=== PATIENT | female | born 1985 | race Two or more races ===

== ENCOUNTER 2016-06-27 17:05 | Emergency (ER) | payer OTHER ==
[~2016-06-27] VITALS: Ht 157.5 cm; Wt 58.1 kg
[2016-06-27 17:44] VITALS: BP 136/79
== END 2016-06-27 20:45 | disposition left against medical advice (07) ==
LOC: ER 17:17
DX: R10.9 Unspecified abdominal pain (principal); R11.2 Nausea with vomiting, unspecified; Z53.21 Procedure and treatment not carried out due to patient leaving prior to being seen by health care provider

== ENCOUNTER → 2019-07-16 | Emergency (ER) | payer MEDICAID, OTHER ==
[~2019-07-16] VITALS: Ht 157.5 cm; Wt 63.5 kg
[~2019-07-16] MED LIST: FAMOTIDINE (10MG/ML) 2ML VL IV ONE; SODIUM CHLORIDE 0.9% 1,000 ML IV ONE; diphenhdrAMINE HCL 50 MG/1 ML VL IV ONE; methylPREDNISolone SOD SUCC 125 MG/2 ML VL IV ONE
[2019-07-17] VITALS: BP 112/79
== END | disposition home or self-care (01) ==
LOC: EDUNIT# 21:08 → EDBD 21:23 → ER 21:27
DX: T78.40XA Allergy, unspecified, initial encounter (principal); R51 Headache; R07.9 Chest pain, unspecified; R10.9 Unspecified abdominal pain; Z90.49 Acquired absence of other specified parts of digestive tract; Z90.710 Acquired absence of both cervix and uterus; Z88.0 Allergy status to penicillin; Z88.8 Allergy status to other drugs, medicaments and biological substances
CPT/HCPCS: 96374; 96375; 99284; J1200; J2930; J3490; J7030

== ENCOUNTER 2019-11-12 01:32 | Emergency (ER) | payer MEDICAID ==
[~2019-11-12] VITALS: Ht 157.5 cm; Wt 60.8 kg
[2019-11-12 02:28] LABS: Basophils # (auto) 0.1 10 ^3/uL (0-0.2); Eosinophils # (auto) 0.1 10 ^3/uL (0-0.8); Eosinophils % (auto) 2.4 % (0.0-7.0); Hematocrit 40.8 % (36.0-46.0); Hemoglobin 13.8 g/dL (12.2-16.2); Lymphocytes # (auto) 3.1 10 ^3/uL (0.4-5.4); Lymphocytes % (auto) 54.5 % (10.0-50.0); Mean Corpuscular Hgb Conc. 33.9 g/dL (32.0-36.0); Mean Corpuscular Volume 91.5 fL (80.0-100.0); Monocytes # (auto) 0.3 10 ^3/uL (0-1.3); Monocytes % (auto) 5.7 % (0.0-12.0); Neutrophils # (auto) 2.1 10 ^3/uL (1.6-8.6); Neutrophils % (auto) 36.4 % (37.0-80.0); Nucleated Red Blood Cells % 0.1 %; Platelet Count (auto) 247 10^3/uL (140-450); Red Blood Cells 4.46 10^6/uL (4.0-5.20); Red Cell Distribution Width 12.2 % (11.8-14.3); White Blood Cell 5.8 10^3/uL (4.4-10.8)
[2019-11-12 02:37] LABS: Calcium 8.9 mg/dL (8.5-10.1); Magnesium 2.5 mg/dL (1.6-2.6); Potassium 4.1 mmol/L (3.5-5.1)
[2019-11-12 02:43] LABS: BUN/Creatinine Ratio 21.9; Bilirubin, Total 0.1 mg/dL (0.2-1.0); Total Protein 7.7 g/dL (6.4-8.2)
[2019-11-12] MEDS ORDERED: ONDANSETRON HCL 4 MG/2 ML VIAL IV ONE (02:45)
[2019-11-12] MEDS ORDERED: MORPHINE SULFATE 4 MG/ML SYR/VIAL IV ONE (02:45)
[2019-11-12 02:52] LABS: Urine Bacteria FEW /hpf (None Seen); Urine Blood Negative /uL (Negative); Urine Specific Gravity 1.016 (1.001-1.035); Urine WBC 3 /hpf (0 - 5)
[2019-11-12] MEDS ORDERED: diphenhdrAMINE HCL 50 MG/1 ML VL IV ONE ×2 (03:00→05:00)
[2019-11-12 04:26] VITALS: BP 107/68
[2019-11-12] MEDS ORDERED: HYDROmorphone HCL 2 MG/ML VL IV ONE (04:45)
== END 2019-11-12 05:20 | disposition home or self-care (01) ==
LOC: ER 01:33
DX: K59.00 Constipation, unspecified (principal); N83.209 Unspecified ovarian cyst, unspecified side; Z88.0 Allergy status to penicillin; Z88.8 Allergy status to other drugs, medicaments and biological substances
CPT/HCPCS: 36415; 74176; 80053; 81001; 82150; 83690; 83735; 85025; 96374; 96375; 96376; 99284; J1170; J1200; J2270; J2405

== ENCOUNTER 2020-10-02 09:39 | Emergency (ER) | payer MEDICAID ==
[~2020-10-02] VITALS: Ht 157.5 cm; Wt 61.2 kg
[2020-10-02 10:06] LABS: Basophils # (auto) 0 10 ^3/uL (0-0.2); Basophils % (auto) 0.8 % (0.0-2.0); Eosinophils # (auto) 0.1 10 ^3/uL (0-0.8); Eosinophils % (auto) 2.3 % (0.0-7.0); Hematocrit 45.5 % (36.0-46.0); Hemoglobin 15.4 g/dL (12.2-16.2); Lymphocytes # (auto) 2.7 10 ^3/uL (0.4-5.4); Lymphocytes % (auto) 42.9 % (10.0-50.0); Mean Corpuscular Hemoglobin 32.1 pg (28.0-32.0); Mean Corpuscular Hgb Conc. 33.9 g/dL (32.0-36.0); Mean Corpuscular Volume 94.8 fL (80.0-100.0); Monocytes # (auto) 0.4 10 ^3/uL (0-1.3); Monocytes % (auto) 6.3 % (0.0-12.0); Neutrophils % (auto) 47.7 % (37.0-80.0); Nucleated Red Blood Cells % 0.1 %; Red Blood Cells 4.81 10^6/uL (4.0-5.20); Red Cell Distribution Width 12.7 % (11.8-14.3); White Blood Cell 6.3 10^3/uL (4.4-10.8)
[2020-10-02 10:26] LABS: Anion Gap 9 (5-15); Blood Urea Nitrogen 13 mg/dL (7-18); Calcium 8.9 mg/dL (8.5-10.1); Carbon Dioxide 21 mmol/L (21-32); Chloride 108 mmol/L (98-107); Glucose 103 mg/dL (74-106); Potassium 3.9 mmol/L (3.5-5.1); Sodium 138 mmol/L (136-145)
[2020-10-02 10:31] LABS: Alanine Aminotransferase 32 U/L (13-56); Alkaline Phosphatase 61 U/L (45-117); Aspartate Aminotransferase 26 U/L (15-37); BUN/Creatinine Ratio 19.7; Bilirubin, Total 0.5 mg/dL (0.2-1.0); GFR African American 130 mL/min; GFR Non-African American 108 mL/min; Total Protein 7.5 g/dL (6.4-8.2)
[2020-10-02] MEDS ORDERED: ONDANSETRON HCL 4 MG/2 ML VIAL IV ONE (10:45)
[2020-10-02] MEDS ORDERED: KETOROLAC TROMETH 60MG/2ML VIAL IM ONE (10:45)
[2020-10-02] MEDS ORDERED: diphenhdrAMINE HCL 50 MG/1 ML VL ONE (10:59)
[2020-10-02] MEDS ORDERED: KETOROLAC TROMETH 30 MG/ML 1ML VIAL IV ONE (11:00)
[2020-10-02] MEDS ORDERED: diphenhdrAMINE HCL 50 MG/1 ML VL IV ONE (11:00)
[2020-10-02] MEDS ORDERED: ASPirin 81 mg TAB PO ONE (11:00)
[2020-10-02] MEDS ORDERED: SODIUM CHLORIDE 0.9% 1,000 ML IV ONE (11:00)
[2020-10-02 11:31] LABS: Urine Bacteria NONE SEEN /hpf (None Seen); Urine Blood Negative /uL (Negative); Urine Specific Gravity 1.021 (1.001-1.035); Urine WBC <1 /hpf (0 - 5)
[2020-10-02 11:42] LABS: INR 0.97 (0.9-1.15)
[2020-10-02] MEDS ORDERED: LORazepam 2MG/ML-1ML VIAL IV ONE (11:45)
[2020-10-02 14:38] VITALS: BP 120/85
== END 2020-10-02 15:07 | disposition home or self-care (01) ==
LOC: ER 09:39
DX: R07.89 Other chest pain (principal); F41.8 Other specified anxiety disorders; R06.4 Hyperventilation; F17.210 Nicotine dependence, cigarettes, uncomplicated; Z90.49 Acquired absence of other specified parts of digestive tract; Z90.710 Acquired absence of both cervix and uterus; Z88.0 Allergy status to penicillin; Z88.8 Allergy status to other drugs, medicaments and biological substances
CPT/HCPCS: 36415; 71046; 80053; 81001; 83735; 84443; 84484; 85025; 85379; 85610; 93005; 96361; 96372; 96374; 96375; 99285; J1200; J1885; J2060; J2405

== ENCOUNTER 2021-02-05 01:40 | Emergency (ER) | payer MEDICAID ==
[~2021-02-05] VITALS: Ht 157.5 cm; Wt 62.6 kg
[2021-02-05 02:23] LABS: Urine Bacteria NONE SEEN /hpf (None Seen); Urine Blood Negative /uL (Negative); Urine Mucus FEW (None Seen); Urine Specific Gravity 1.018 (1.001-1.035); Urine WBC 1 /hpf (0 - 5)
[2021-02-05 02:24] LABS: Alanine Aminotransferase 31 U/L (13-56); Amylase 70 U/L (25-115); Anion Gap 12 (5-15); Aspartate Aminotransferase 27 U/L (15-37); BUN/Creatinine Ratio 12.9; Blood Urea Nitrogen 9 mg/dL (7-18); Calcium 8.7 mg/dL (8.5-10.1); Carbon Dioxide 21 mmol/L (21-32); Chloride 109 mmol/L (98-107); GFR African American 122 mL/min; GFR Non-African American 101 mL/min; Glucose 110 mg/dL (74-106); Lipase 171 U/L (73-393); Sodium 142 mmol/L (136-145)
[2021-02-05 02:27] LABS: Alkaline Phosphatase 72 U/L (45-117); Bilirubin, Total 0.2 mg/dL (0.2-1.0)
[2021-02-05] MEDS ORDERED: ONDANSETRON ODT 4 MG TAB PO ONE (02:30)
[2021-02-05] MEDS ORDERED: MORPHINE SULFATE 10 MG/ML INJ 1ML SDV IM ONE (02:30)
[2021-02-05 02:45] LABS: Basophils # (auto) 0.1 10 ^3/uL (0-0.2); Basophils % (auto) 1.1 % (0.0-2.0); Eosinophils # (auto) 0.1 10 ^3/uL (0-0.8); Eosinophils % (auto) 0.8 % (0.0-7.0); Hematocrit 43.3 % (36.0-46.0); Hemoglobin 15.1 g/dL (12.2-16.2); Lymphocytes # (auto) 3.7 10 ^3/uL (0.4-5.4); Mean Corpuscular Hemoglobin 32.3 pg (28.0-32.0); Mean Corpuscular Hgb Conc. 34.8 g/dL (32.0-36.0); Mean Corpuscular Volume 92.8 fL (80.0-100.0); Monocytes # (auto) 0.4 10 ^3/uL (0-1.3); Monocytes % (auto) 5.6 % (0.0-12.0); Neutrophils # (auto) 2.7 10 ^3/uL (1.6-8.6); Neutrophils % (auto) 38.5 % (37.0-80.0); Nucleated Red Blood Cells % 0.1 %; Red Blood Cells 4.66 10^6/uL (4.0-5.20); Red Cell Distribution Width 12.6 % (11.8-14.3); White Blood Cell 6.9 10^3/uL (4.4-10.8)
[2021-02-05] MEDS ORDERED: MORPHINE SULFATE 4 MG/ML SYR/VIAL ONE (02:57)
[2021-02-05 03:40] LABS: Amphetamine Screen, Urine NEGATIVE (NEGATIVE); Barbiturate Scree,Urine NEGATIVE (NEGATIVE); Benzodiazephine Screen, Urine NEGATIVE (NEGATIVE); Cannabinoid Screen, Urine NEGATIVE (NEGATIVE); Cocaine Screen, Urine NEGATIVE (NEGATIVE); Opiate Scree,Urine NEGATIVE (NEGATIVE); Phencyclidine Screen, Urine NEGATIVE (NEGATIVE)
[2021-02-05] MEDS ORDERED: diphenhdrAMINE HCL 25 MG CAP PO ONE (04:00)
[2021-02-05] MEDS ORDERED: OXYCODONE W/ ACETAMINOPHEN 5/325MG TABLET PO ONE (04:00)
[2021-02-05 04:41] VITALS: BP 117/76
== END 2021-02-05 04:56 | disposition home or self-care (01) ==
LOC: ER 01:40
DX: G89.29 Other chronic pain (principal); R10.30 Lower abdominal pain, unspecified; F10.129 Alcohol abuse with intoxication, unspecified; F17.210 Nicotine dependence, cigarettes, uncomplicated; Z90.49 Acquired absence of other specified parts of digestive tract; Z90.710 Acquired absence of both cervix and uterus; Z88.0 Allergy status to penicillin; Z88.8 Allergy status to other drugs, medicaments and biological substances; Y90.8 Blood alcohol level of 240 mg/100 ml or more
CPT/HCPCS: 36415; 74176; 80053; 80307; 80320; 81001; 82150; 83690; 85025; 96372; 99284; J2270; Q0162

== ENCOUNTER 2021-07-21 13:13 | Emergency (ER) | payer MEDICAID ==
[~2021-07-21] VITALS: Ht 157.5 cm; Wt 62.6 kg
[2021-07-21] MEDS ORDERED: ONDANSETRON HCL 4 MG/2 ML VIAL IV ONE ×2 (13:45→23:00)
[2021-07-21] MEDS ORDERED: HYDROmorphone HCL 2 MG/ML VL IV ONE (13:45)
[2021-07-21] MEDS ORDERED: SODIUM CHLORIDE 0.9% 1,000 ML IVB ONE (13:45)
[2021-07-21] MEDS ORDERED: PANTOPRAZOLE 40 MG/10 ML VIAL INJ IV ONE (13:45)
[2021-07-21 14:18] LABS: Urine Bacteria NONE SEEN /hpf (None Seen); Urine Blood Negative /uL (Negative); Urine Mucus FEW (None Seen); Urine Specific Gravity 1.023 (1.001-1.035); Urine WBC 1 /hpf (0 - 5)
[2021-07-21 15:31] LABS: Basophils # (auto) 0.1 10 ^3/uL (0-0.2); Basophils % (auto) 2.1 % (0.0-2.0); Eosinophils # (auto) 0 10 ^3/uL (0-0.8); Eosinophils % (auto) 0.1 % (0.0-7.0); Hematocrit 42.4 % (36.0-46.0); Hemoglobin 14.6 g/dL (12.2-16.2); Lymphocytes # (auto) 2.5 10 ^3/uL (0.4-5.4); Lymphocytes % (auto) 38.7 % (10.0-50.0); Mean Corpuscular Hemoglobin 31.3 pg (28.0-32.0); Mean Corpuscular Hgb Conc. 34.4 g/dL (32.0-36.0); Mean Corpuscular Volume 91.1 fL (80.0-100.0); Monocytes # (auto) 0.3 10 ^3/uL (0-1.3); Monocytes % (auto) 5.1 % (0.0-12.0); Neutrophils # (auto) 3.5 10 ^3/uL (1.6-8.6); Nucleated Red Blood Cells % 0.1 %; Red Blood Cells 4.65 10^6/uL (4.0-5.20); Red Cell Distribution Width 12.6 % (11.8-14.3); White Blood Cell 6.6 10^3/uL (4.4-10.8)
[2021-07-21 15:49] LABS: Potassium 3.8 mmol/L (3.5-5.1)
[2021-07-21 15:55] LABS: Albumin 3.7 g/dL (3.4-5.0); BUN/Creatinine Ratio 23.6; Bilirubin, Total 0.5 mg/dL (0.2-1.0); Calcium 8.5 mg/dL (8.5-10.1); Total Protein 7.1 g/dL (6.4-8.2)
[2021-07-21] MEDS ORDERED: HYDR-4902 PO (16:08)
[2021-07-21] MEDS ORDERED: ONDA-144 PO (16:08)
[2021-07-21] MEDS ORDERED: PANT40TA2 PO (16:08)
[2021-07-21] MEDS ORDERED: PROCHLORPERAZINE EDISYLATE 5 MG/ML 2ML VIAL IV ONE (16:45)
[2021-07-21] MEDS ORDERED: MORPHINE SULFATE 4 MG/ML SYR/VIAL IV ONE (16:45)
[2021-07-21] MEDS ORDERED: MORPHINE SULFATE INJECTION 2 MG/ML SYRG IV ONE (23:00)
[2021-07-22 01:12] VITALS: BP 128/74
== END 2021-07-22 01:41 | disposition home or self-care (01) ==
LOC: ER 13:13
DX: R10.11 Right upper quadrant pain (principal); R11.2 Nausea with vomiting, unspecified; R19.7 Diarrhea, unspecified; F17.210 Nicotine dependence, cigarettes, uncomplicated; Z90.49 Acquired absence of other specified parts of digestive tract; Z90.710 Acquired absence of both cervix and uterus; Z79.899 Other long term (current) drug therapy; Z88.0 Allergy status to penicillin; Z88.8 Allergy status to other drugs, medicaments and biological substances; Z20.822 Contact with and (suspected) exposure to COVID-19
CPT/HCPCS: 36415; 74176; 76705; 80053; 81001; 81025; 83690; 83735; 85025; 87426; 96361; 96374; 96375; 96376; 99285; C9113; J0780; J1170; J2270; J2405; J7030

== ENCOUNTER 2022-02-25 14:16 | Emergency (ER) | payer MEDICAID ==
[~2022-02-25] VITALS: Ht 157.5 cm; Wt 61.4 kg
[~2022-02-25 14:16] MED LIST changes: -FAMOTIDINE (10MG/ML) 2ML VL IV ONE; +HYDR-4902 PO; +ONDA-144 PO; +PANT40TA2 PO; -SODIUM CHLORIDE 0.9% 1,000 ML IV ONE; -diphenhdrAMINE HCL 50 MG/1 ML VL IV ONE; -methylPREDNISolone SOD SUCC 125 MG/2 ML VL IV ONE
[2022-02-25 14:56] LABS: Urine WBC None Seen /hpf (0 - 5)
[2022-02-25 15:05] LABS: Basophils # (auto) 0 10 ^3/uL (0-0.2); Basophils % (auto) 0.5 % (0.0-2.0); Eosinophils # (auto) 0.1 10 ^3/uL (0-0.8); Eosinophils % (auto) 1.4 % (0.0-7.0); Hematocrit 43.8 % (36.0-46.0); Hemoglobin 14.6 g/dL (12.2-16.2); Lymphocytes # (auto) 2.2 10 ^3/uL (0.4-5.4); Lymphocytes % (auto) 33.1 % (10.0-50.0); Mean Corpuscular Hemoglobin 31.5 pg (28.0-32.0); Mean Corpuscular Hgb Conc. 33.5 g/dL (32.0-36.0); Mean Corpuscular Volume 94.2 fL (80.0-100.0); Monocytes # (auto) 0.4 10 ^3/uL (0-1.3); Neutrophils # (auto) 3.9 10 ^3/uL (1.6-8.6); Nucleated Red Blood Cells % 0.1 %; Red Blood Cells 4.65 10^6/uL (4.0-5.20); White Blood Cell 6.7 10^3/uL (4.4-10.8)
[2022-02-25 15:13] LABS: Urine Bacteria NONE SEEN /hpf (None Seen); Urine Blood Negative /uL (Negative); Urine Specific Gravity 1.014 (1.001-1.035)
[2022-02-25 15:32] LABS: Albumin 4.2 g/dL (3.4-5.0); BUN/Creatinine Ratio 19.1; Calcium 9.3 mg/dL (8.5-10.1); Potassium 4.2 mmol/L (3.5-5.1)
[2022-02-25 15:35] LABS: Bilirubin, Total 0.4 mg/dL (0.2-1.0); Total Protein 7.7 g/dL (6.4-8.2)
[2022-02-25] MEDS ORDERED: IBUPROFEN 600 MG TAB PO ONE (19:15)
[2022-02-25] MEDS ORDERED: ONDANSETRON ODT 4 MG TAB PO ONE (19:15)
[2022-02-25 21:59] VITALS: BP 128/99
== END 2022-02-25 22:12 | disposition home or self-care (01) ==
LOC: ER 14:16
DX: R07.89 Other chest pain (principal); R10.9 Unspecified abdominal pain; F17.210 Nicotine dependence, cigarettes, uncomplicated; K21.9 Gastro-esophageal reflux disease without esophagitis; Z90.710 Acquired absence of both cervix and uterus; Z88.0 Allergy status to penicillin; Z88.1 Allergy status to other antibiotic agents
CPT/HCPCS: 36415; 71045; 76705; 80053; 81001; 84484; 85025; 93005

== ENCOUNTER 2023-12-25 01:49 | Emergency (ER) | payer MEDICAID, OTHER ==
[~2023-12-25] VITALS: Ht 157.5 cm; Wt 63.0 kg
[2023-12-25 01:49] VITALS: BP 112/80; PULSE 116; RESP 20; O2SAT 94
[2023-12-25] MEDS: SODIUM CHLORIDE 0.9% 1,000 ML IV ONE (02:28)
[2023-12-25 02:29] LABS: Basophils # (auto) 0.1 10 ^3/uL (0-0.2); Basophils % (auto) 1.1 % (0.0-2.0); Eosinophils # (auto) 0.3 10 ^3/uL (0-0.8); Hematocrit 41.1 % (36.0-46.0); Lymphocytes # (auto) 3.5 10 ^3/uL (0.4-5.4); Lymphocytes % (auto) 49.4 % (10.0-50.0); Mean Corpuscular Hemoglobin 31.1 pg (28.0-32.0); Mean Corpuscular Volume 91.4 fL (80.0-100.0); Monocytes # (auto) 0.4 10 ^3/uL (0-1.3); Monocytes % (auto) 5.7 % (0.0-12.0); Neutrophils # (auto) 2.8 10 ^3/uL (1.6-8.6); Neutrophils % (auto) 39.8 % (37.0-80.0); Nucleated Red Blood Cells % 0.1 %; Red Blood Cells 4.49 10^6/uL (4.0-5.20); Red Cell Distribution Width 13.4 % (11.8-14.3); White Blood Cell 7.1 10^3/uL (4.4-10.8)
[2023-12-25] MEDS ORDERED: KETOROLAC TROMETH 30 MG/ML 1ML VIAL IV ONE (02:30)
[2023-12-25 02:39] LABS: Alanine Aminotransferase 35 U/L (7-40); Albumin 4.6 g/dL (3.2-4.8); Alkaline Phosphatase 61 U/L (46-116); Anion Gap 9 (5-15); Aspartate Aminotransferase 24 U/L (13-40); BUN/Creatinine Ratio 14.1 (10.0-20.0); Bilirubin, Total 0.2 mg/dL (0.2-1.0); Blood Urea Nitrogen 9 mg/dL (9-23); Calcium 9.1 mg/dL (8.7-10.4); Carbon Dioxide 22 mmol/L (20-30); Chloride 111 mmol/L (98-107); Glucose 112 mg/dL (74-106); Sodium 142 mmol/L (136-145); Total Protein 7.3 g/dL (5.7-8.2)
[2023-12-25] MEDS ORDERED: HYDROcodone-ACET 5/325MG TAB PO ONE (03:15)
== END 2023-12-25 05:28 | disposition left against medical advice (07) ==
LOC: EDBD 01:49 → ER 01:49
DX: R10.11 Right upper quadrant pain (principal); R55 Syncope and collapse; R51.9 Headache, unspecified; K21.9 Gastro-esophageal reflux disease without esophagitis; F17.210 Nicotine dependence, cigarettes, uncomplicated; Z90.710 Acquired absence of both cervix and uterus; Z88.0 Allergy status to penicillin; Z88.1 Allergy status to other antibiotic agents
CPT/HCPCS: 36415; 70450; 71250; 74176; 80053; 80320; 84484; 85025; 96360; 99284; J7030; J1885